=== PATIENT | female | born 1985 | race Asian ===

== ENCOUNTER 2025-02-20 08:11 | Inpatient (IN) | payer BC, SELFPAY ==
[2025-02-20 08:19] VITALS: BP 113/55; BMI 31.4
[2025-02-20] MEDS: LR 1000 IV (08:45)
[2025-02-20] MEDS: BICITRA 30 ML PO (08:45)
[2025-02-20] MEDS: TYLENOL 1000 MG PO (08:45)
[2025-02-20 08:59] LABS: Hematocrit 34.5 % (37.0-47.0); Hemoglobin 12.2 g/dL (12.0-16.0); Mean Corp Hgb Conc. 35.4 g/dL (33.0-37.0); Mean Corpuscular Hgb 31.5 pg (27.0-31.0); Mean Corpuscular Volume 89.1 fL (81.0-99.0); Mean Platelet Volume 9.7 fL (7.4-10.4); Platelet Count 241 10^3/uL (130-400); Red Blood Cell Count 3.87 10^6/uL (4.20-5.40); White Blood Cell Count 7.7 10^3/uL (4.8-10.8)
[2025-02-20] MEDS: ANCEF 10 IV (09:00)
[2025-02-20] MEDS: ZOFRAN 4 MG IV (12:30)
[2025-02-20] MEDS: TORADOL 15 MG IV ×2 (14:04→19:43)
[2025-02-20] MEDS: FLUSH (NSS) 3 FLUSH IV (19:44)
[2025-02-21] MEDS: TORADOL 15 MG IV ×2 (01:52→08:45)
[2025-02-21] MEDS: FLUSH (NSS) 3 FLUSH IV (01:54)
[2025-02-21 05:09] LABS: Hematocrit 27.7 % (37.0-47.0); Hemoglobin 9.5 g/dL (12.0-16.0); Mean Corp Hgb Conc. 34.3 g/dL (33.0-37.0); Mean Corpuscular Volume 90.5 fL (81.0-99.0); Mean Platelet Volume 9.6 fL (7.4-10.4); Platelet Count 223 10^3/uL (130-400); Red Blood Cell Count 3.06 10^6/uL (4.20-5.40); Red Cell Dist. Width 12.8 % (11.5-14.5); White Blood Cell Count 11.4 10^3/uL (4.8-10.8)
--- NOTE | 2025-02-21 07:55 | W.PN.ANS.POP ---
Anesthesia Post Operative
- Anesthesia Post Op Note
Vital Signs Stable-See Nursing Note: Yes
Airway Patent: Yes
Adequate Pain Control: Yes
Change in Mental Status: No
Current Postoperative Nausea & Vomiting: No
Anesthesia Complications: No
General Anesthetic Recall: No
Unplanned Admission: No
Post Op Hydration Adequate: Yes
[2025-02-21] MEDS: SENOKOT-S 1 TABLET PO (08:44)
[2025-02-21] MEDS: PRENATAL PLUS 1 TABLET PO (08:44)
[2025-02-21] MEDS: MYLICON 80 MG PO (15:21)
[2025-02-21] MEDS: MOTRIN 600 MG PO ×2 (15:22→21:24)
[2025-02-21] MEDS: FEOSOL 325 MG PO (20:02)
[2025-02-21] MEDS: PERCOCET 5/325 1 TABLET PO (20:32)
[2025-02-22] MEDS: PERCOCET 5/325 1 TABLET PO ×3 (05:47→20:38)
[2025-02-22] MEDS: MOTRIN 600 MG PO ×3 (05:47→20:37)
[2025-02-22] MEDS: FEOSOL 325 MG PO (08:00)
[2025-02-22] MEDS: PRENATAL PLUS 1 TABLET PO (08:00)
[2025-02-22] MEDS: SENOKOT-S 1 TABLET PO (08:03)
[2025-02-23] MEDS: MOTRIN 600 MG PO ×2 (03:42→09:37)
[2025-02-23] MEDS: PERCOCET 5/325 1 TABLET PO ×2 (03:42→09:38)
[2025-02-23] MEDS: MYLICON 80 MG PO (07:50)
[2025-02-23] MEDS: PRENATAL PLUS 1 TABLET PO (07:50)
[2025-02-23] MEDS: FEOSOL 325 MG PO (07:50)
[2025-02-23] MEDS: SENOKOT-S 1 TABLET PO (07:50)
[2025-02-23 11:39] LABS: Syphilis/T. pallidum Ab Reflex Negative (Negative)
== END 2025-02-23 14:13 | disposition home or self-care (01) | DRG 787 ==
LOC: LDRP 08:11
PROVIDERS: ADMITTING PHYSICIAN Obstetrics & Gynecology; FAMILY PHYSICIAN Family Medicine
PROC: 10D00Z1 Extraction of Products of Conception, Low, Open Approach (ICD-10-PCS; 2025-02-20)
DX: O34.211 Maternal care for low transverse scar from previous cesarean delivery (principal); O98.52 Other viral diseases complicating childbirth; B00.9 Herpesviral infection, unspecified; Z37.0 Single live birth; Z3A.39 39 weeks gestation of pregnancy
CPT/HCPCS: 88307; 36415; 85027; 86780; 86850; 86900; 86901